=== PATIENT | male | born 1985 | race Caucasian/White ===

== ENCOUNTER 2018-07-25 12:25 | Emergency (ER) | payer BC, MEDICAID ==
[~2018-07-25] VITALS: Ht 182.9 cm; Wt 140.0 kg
[2018-07-25 12:28] VITALS: BP 143/92
[2018-07-25] MEDS ORDERED: HYDROcodone/APAP 5/325 TABLET PO ONE (13:00)
[2018-07-25] MEDS ORDERED: KETOROLAC 30 MG/1 ML IM ONE (13:00)
[2018-07-25] MEDS ORDERED: CYCLOBENZAPRINE 10 MG TABLET PO ONE (13:00)
[2018-07-25] MEDS ORDERED: KETOROLAC 30 MG/1 ML ONE (13:05)
[2018-07-25] MEDS ORDERED: HYDROcodone/APAP 5/325 TABLET ONE (13:06)
[2018-07-25] MEDS ORDERED: CYCLOBENZAPRINE 10 MG TABLET ONE (13:06)
--- NOTE | 2018-07-25 13:09 | NUR ---
Christiano Valle - delay in starting L-spine exam due to patient receiving pain medication.
== END 2018-07-25 14:18 | disposition home or self-care (01) ==
LOC: ED 14:00
DX: S39.012A Strain of muscle, fascia and tendon of lower back, initial encounter (principal); X58.XXXA Exposure to other specified factors, initial encounter; Y93.89 Activity, other specified; Y92.89 Other specified places as the place of occurrence of the external cause; Y99.8 Other external cause status
CPT/HCPCS: 72110; 96372; 99283; J1885